=== PATIENT | male | born 1960 | race Caucasian/White ===

== ENCOUNTER 2020-03-24 10:20 | Outpatient (REF) | payer MEDICARE, MEDICAID, SELFPAY | END 2020-03-24 10:21 | disposition home or self-care (01) | LOC: HO.HMGCLDS 10:20 | PROVIDERS: PCP Internal Medicine; Visit Provider Internal Medicine | DX: Z20.822 Contact with and (suspected) exposure to COVID-19 (principal) | CPT/HCPCS: 36415; U0003 ==

== ENCOUNTER → 2020-06-02 14:21 | Outpatient (BNVA) | payer MEDICARE, SELFPAY | PROVIDERS: PCP Internal Medicine; Visit Provider Internal Medicine ==

== ENCOUNTER 2020-06-02 15:17 | Outpatient (REF) | payer MEDICARE, SELFPAY ==
--- NOTE | 2020-06-02 | PFT_ITS ---
FVC, FEV1, VMD33-10, and MVV are all markedly decreased. Post bronchodilator therapy, there is no significant change. CONCLUSION: The spirometry before and after bronchodilator therapy shows presence of rather severe degree of obstructive airway disorder. There is no response to bronchodilator therapy. Clinical correlation recommended. MD ANNA Glaser/LENNY / [phone]
== END 2020-06-02 15:18 | disposition home or self-care (01) ==
LOC: HO.RESP 15:17
PROVIDERS: PCP Internal Medicine; Visit Provider Internal Medicine
DX: R06.00 Dyspnea, unspecified (principal)
CPT/HCPCS: 94060; 99202

== ENCOUNTER 2020-11-20 13:48 | Outpatient (REF) | payer MEDICARE, SELFPAY ==
--- NOTE | ~2020-11-20 | XR_ITS ---
EXAMINATION: XR SHOULDER, LEFT CLINICAL INFORMATION: Pain. Unable to lift arm. COMPARISON: Chest radiograph dated from 06/03/2019. TECHNIQUE: Three views of the left shoulder. FINDINGS: No evidence of acute fractures or malalignment. There is decrease coracohumeral interval stable since 2020 and most consistent with rotator cuff injury. The clavicle, acromioclavicular joint and coracoid process are intact. The visualized left-sided ribs are unremarkable. No abnormalities within the soft tissues. XR/XR shoulder LT min 2V IMPRESSION: Decrease coracohumeral interval suggestive of an underlying rotator cuff injury. If clinically indicated, consider further evaluation with an MR of the left shoulder. No acute fractures.
[2020-11-20 16:43] LABS: Hematocrit 42.2 % (42-52); Hemoglobin 13.4 g/dl (14.0-18.0)
[2020-11-20 17:00] LABS: Alanine Aminotransferase 27 U/L (0-40); Albumin Level 3.9 g/dL (3.5-5.0); Alkaline Phosphatase 68 U/L (39-117); Anion Gap 15 (12-20); Aspartate Amino Transferase 30 U/L (5-37); Bilirubin Total 0.2 mg/dL (0.0-1.0); Blood Urea Nitrogen 21 mg/dL (9-16); Carbon Dioxide 28 mmol/L (22-29); Chloride 102 mmol/L (96-108); Estimated Glomerular Filt Rate > 60; Glucose Random 99 mg/dL (60-115); Potassium 4.9 mmol/L (3.3-5.1); Sodium 140 mmol/L (135-145); Total Protein 6.9 g/dL (6.5-8.0)
[2020-11-20 17:20] LABS: Prostate Specific Antigen 0.09 ng/mL (<0.05-4.0)
[2020-11-22 04:31] LABS: LDL Cholesterol Direct 103 mg/dL (<100)
== END 2020-11-20 13:49 | disposition home or self-care (01) ==
LOC: HO.HMGCX 13:48
PROVIDERS: PCP Internal Medicine; Visit Provider Internal Medicine
DX: Z12.5 Encounter for screening for malignant neoplasm of prostate (principal); M25.512 Pain in left shoulder; M75.41 Impingement syndrome of right shoulder; E66.01 Morbid (severe) obesity due to excess calories; F11.20 Opioid dependence, uncomplicated; F19.11 Other psychoactive substance abuse, in remission; I10 Essential (primary) hypertension; J44.9 Chronic obstructive pulmonary disease, unspecified; R39.198 Other difficulties with micturition; Z76.89 Persons encountering health services in other specified circumstances; Z85.51 Personal history of malignant neoplasm of bladder
CPT/HCPCS: 36415; 73030; 80053; 83721; 84153; 85014; 85018

== ENCOUNTER → 2020-12-15 15:03 | Outpatient (BNVA) | payer MEDICARE, OTHER, SELFPAY | PROVIDERS: PCP Internal Medicine; Visit Provider Physician Assistant | DX: M75.102 Unspecified rotator cuff tear or rupture of left shoulder, not specified as traumatic (principal); M12.812 Other specific arthropathies, not elsewhere classified, left shoulder | CPT/HCPCS: 20610; 99202; J1040 ==

== ENCOUNTER → 2021-03-25 13:38 | Outpatient (BNVA) | payer MEDICARE, SELFPAY | PROVIDERS: PCP Internal Medicine; Visit Provider Internal Medicine | DX: J44.9 Chronic obstructive pulmonary disease, unspecified (principal); Z87.891 Personal history of nicotine dependence | CPT/HCPCS: 99212 ==

== ENCOUNTER 2021-09-30 13:42 | Outpatient (REF) | payer MEDICARE, OTHER, SELFPAY ==
--- NOTE | ~2021-09-30 | US_ITS ---
EXAMINATION: US pelvic, LIMITED/FOLLOW UP CLINICAL INFORMATION: Right lower quadrant pain. Rule out hernia. COMPARISON: None TECHNIQUE: Grayscale and color imaging of the right groin/lower quadrant using a linear transducer with Valsalva maneuver FINDINGS: No hernia, mass or fluid collection is seen. US/US pelvic limited IMPRESSION: No hernia appreciated by ultrasound.
== END 2021-09-30 13:43 | disposition home or self-care (01) ==
LOC: HO.HMGCX 13:42
PROVIDERS: PCP Internal Medicine; Visit Provider Internal Medicine
DX: R10.31 Right lower quadrant pain (principal)
CPT/HCPCS: 76857

== ENCOUNTER 2021-10-06 19:24 | Emergency (ER) | payer MEDICARE, SELFPAY ==
--- NOTE | 2021-10-06 19:47 | ED.CPR ---
HPI - CPR General Stated Complaint: Cardiac arrest Time Seen by Provider: 10/06/21 19:35 Source: family (Sister), EMS and old records reviewed Mode of arrival: EMS Limitations: other (Cardiac arrest) History of Present Illness HPI narrative: 61-year-old male came in by EMS for cardiac arrest. The patient with known history of severe COPD due to long history of smoking, reviewing old records patient was not compliant with his medication, patient does not use supplemental oxygen, EMS was dispatched to his place for being unresponsive on EMS arrival to his home patient was complaining of shortness of breath and chest pain then he collapsed, under live alone patient had PA activity with no pulse and agonal breathing patient was intubated at the scene and 3 rounds of epinephrine, CPR with good quality was conducted using locus. On patient's arrival CPR is in progress, patient still in PA with no pulse, blood sugar was 58 patient was given amp of D50, patient was given 3 rounds of 1 mg epinephrine IV, and 2 g of magnesium. Patient still with no pulse patient was called that add 19:37. I spoke with Tiny Coleman the sister over the phone. ME was contacted and the case was declined Related Data Previous Rx's Medication Instructions Recorded pneumococcal 23-lalo ps vaccine 25 0.5 ml IM ONCE 30 days #0.5 mL 05/01/20 mcg/0.5 mL injection solution (Pneumovax-23) albuterol sulfate 90 mcg/actuation 2 puff inhalation Q4-6H PRN 06/02/20 aerosol inhaler (ProAir HFA) shortness of breath or wheezing 30 days #8.5 grams fluticasone 500 mcg-salmeterol 50 1 inh inhalation BID COPD 30 days 03/25/21 mcg/dose blistr powdr for #60 ea inhalation (Wixela Inhub) meloxicam 15 mg tablet 15 mg PO DAILY 30 days #30 tabs 07/13/21 Allergies Allergy/AdvReac Type Severity Reaction Status Date / Time No Known Allergies Allergy Verified 07/13/21 14:39 [No Known Allergies*] Review of Systems Review of Systems: Yes Unobtainable due to mental condition (Cardiac arrest) PMFSH Past Medical History Medical History Asthma Social History Social History Housing: Other (mobile home) Alcohol intake: current Alcohol intake frequency: holidays/special occasions only Patient Tobacco Use Status: Former Tobacco user Quit Date: 05/01/2013 Tobacco use type: Cigarette Years Smoked: 34 years e-Cigarette/Vaping Use: Never Used service: No Current occupational status: disabled Cognitive needs: No Hearing needs: No Vision needs: No Physical Exam Vital Signs: Appearance: Arrested and CPR in progress. Head: Normal external exam. Normocephalic. Atraumatic. Eyes: Pupil is 3 mm fixed and dilated bilaterally ENT: TM's Normal. Pharynx normal. Neck: Normal inspection. CVS: No pulses in 4 extremities, no cardiac activity with a bedside ultrasound Respiratory: No spontaneous respiration patient is intubated. Abdomen: Distended, diffuse mottling skin. Skin: Mottled scan with distended abdomen and distended scrotum Neuro: Arrested unresponsive.. Course Course Course Narrative: 61-year-old male with cardiac arrest likely secondary to massive MO and chronic obstructive lung disease, unsuccessful resuscitation attempt in the ED, patient was pronounced at 19:37, case was declined by mg by Carina Callejas . Discharge Plan Discharge Clinical Impression: Cardiac arrest Patient Disposition: Date/Time: 10/06/21 19:37
--- NOTE | 2021-10-06 19:56 | PC.NURSE ---
call was placed to [facility] [id number]. was told will receive a call back
--- NOTE | 2021-10-06 20:55 | PC.NURSE ---
patient sister and contact-Tiny Coleman [phone]
--- NOTE | 2021-10-06 21:50 | PC.NURSE ---
refer to paper documentation for code report, medications and ems report.
--- NOTE | 2021-10-06 21:54 | PC.NURSE ---
bryan ROBLES followed up, given appropriate information including sisters contact number. ET tube, IO, peripheral IVs discontinued. Pt has been transferred to [facility] [place]
[2021-10-07 06:25] LABS: Glucose, Whole Blood 58 mg/dL (60-115)
== END 2021-10-06 21:50 | disposition expired ==
LOC: HO.ED 22:23
PROVIDERS: Emergency Provider Emergency Medicine
DX: I46.9 Cardiac arrest, cause unspecified (principal); J44.9 Chronic obstructive pulmonary disease, unspecified; R06.02 Shortness of breath; Z87.891 Personal history of nicotine dependence
CPT/HCPCS: 82947; 96374; 96375; 99282; 99285; J0171; J3475